=== PATIENT | male | born 1990 ===

== ENCOUNTER 2024-01-30 02:14 | Emergency (ER) | payer SELFPAY ==
[~2024-01-30] VITALS: Ht 175.3 cm; Wt 94.1 kg
[2024-01-30 02:18] VITALS: TEMP 103.1; O2SAT 100
[2024-01-30] MEDS: ACETAMINOPHEN 325MG TABLET PO ONE (03:00)
[2024-01-30] MEDS: SODIUM CHLORIDE 0.9% 1,000 ML IV ONE ×2 (03:30)
[2024-01-30] MEDS: GUAIFENESIN 600MG ER TABLET PO SCH (03:45)
[2024-01-30] MEDS: KETOROLAC 15MG/ML VIAL IV ONE (03:56)
[2024-01-30 05:51] VITALS: BP 143/76; PULSE 80; RESP 18
[2024-01-30] MEDS ORDERED: NAPR275T96 MT (06:09)
[2024-01-30] MEDS ORDERED: GUAI-453 MT (06:09)
[2024-01-30] MEDS ORDERED: MED4 MT (06:09)
[2024-01-30] MEDS ORDERED: ALBU6.7H15 INH (06:09)
== END 2024-01-30 06:38 | disposition home or self-care (01) ==
LOC: ER 02:14
DX: B34.9 Viral infection, unspecified (principal); R05.9 Cough, unspecified; Z20.822 Contact with and (suspected) exposure to COVID-19
CPT/HCPCS: 99284; 96374; 71045; 96361; 87426; 87804 ×2; J1885; J7030